=== PATIENT | female | born 1990 | race Caucasian/White ===

== ENCOUNTER 2024-09-24 12:44 | Emergency (ER) | payer MEDICARE, SELFPAY ==
[2024-09-24 12:46] VITALS: BP 132/95; PULSE 79; RESP 18; TEMP 36.6; O2SAT 98
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
[2024-09-24 13:40] LABS: Absolute Lymphocyte Count 2.88 X10^3/uL (0.83-4.51); Absolute Neutrophil Count 5.8 X10^3/uL (2.0-7.7); Basophil# 0.05 X10^3/uL; Basophil% 0.5 % (0-1); Eosinophil# 0.04 X10^3/uL; Eosinophils% 0.4 % (0-5); Hematocrit 39.5 % (37-47); Hemoglobin 13.5 g/dL (12.0-15.0); Lymphocyte # 2.88 X10^3/ul (0.83-4.51); Lymphocyte % 31.2 % (19-41); Mean Corp Hgb Conc 34.2 g/dL (32-36); Mean Corpuscular Hgb 29.3 pg (27.0-32.0); Mean Corpuscular Volume 85.9 fL (81-99); Mean Platelet Vol. 9.6 fl (6.2-12.0); Monocyte# 0.49 X10^3/uL; Monocyte% 5.3 % (0-10); NRBC Flagged by Analyzer 0 % (0-5); Neutrophil # 5.76 X10^3/uL (2.7-7.7); Neutrophil % 62.4 % (47-70); Platelet Count 281 K/mm3 (150-450); RBC Distribution Width CV 13.7 % (11.6-14.6); RBC Distribution Width SD 42.4 fl (35.1-43.9); White Blood Count 9.2 K/mm3 (4.4-11.0)
[2024-09-24 13:51] LABS: Anion Gap 8 (5-15); BUN 10 mg/dL (7-18); BUN/Creat Ratio 14.6 RATIO (10-20); Calcium,Total 8.8 mg/dL (8.5-10.1); Chloride 106 mmol/L (98-107); Creatinine, Serum 0.69 mg/dL (0.55-1.02); EST Glomerular Filtration Rate 105 mL/min (>60); Est Glom Filt Rate - Afr Amer 127 mL/min (>60); Glucose 71 mg/dL (74-106); Potassium 3.5 mmol/L (3.5-5.1); Sodium Level 136 mmol/L (136-145)
[2024-09-24] MEDS: Ziprasidone IM 20 MG/ML VIAL IM (13:53)
[2024-09-24 13:59] LABS: Amphetamine Urine POSITIVE (<1000 ng/mL); Barbiturate Urine VISTA NEGATIVE (< 200 ng/mL); Benzodiazepine Urine VISTA POSITIVE (< 200 ng/mL); Cocaine Urine VISTA NEGATIVE (< 300 ng/mL); Ecstacy Urine VISTA NEGATIVE (< 500 ng/mL); Methadone Urine VISTA NEGATIVE (< 300 ng/mL); Opiates Urine NEGATIVE (< 300 ng/mL); PCP Urine NEGATIVE (< 25 ng/mL); THC Urine VISTA NEGATIVE (< 50 ng/mL); Vista UDS pH Range 5
[2024-09-24 14:05] VITALS: BP 125/71; PULSE 89; RESP 16; O2SAT 99
--- NOTE | 2024-09-24 14:25 | ED.RN ---
SIGNIFICANT OTHER, STACEY, CALLED TO ED. PT GAVE THIS RN PERMISSION TO TALK WITH STACEY. STACEY UPDATED, INFORMED THAT PATIENT WILL BE EVALUATED FOR MENTAL HEALTH PLACEMENT. INFORMED THAT PATIENT IS NOT APPROPRIATE FOR VISITORS AT THIS TIME D/T AGITATION.
[2024-09-24 14:29] LABS: Internal QC Validated? YES +Cl - CLEAR BKGD; Pregnancy, Serum, hCG Quali. NEGATIVE Negative
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
--- NOTE | 2024-09-24 18:12 | CM.ED ---
Social Work: [place] Grzegor[place]: [place]: Patient accepted. Accepting physician: Dr. Baires. NTN: [phone], opt. 0 then ask to be transferred to [facility] MARCY Felix, RADIO SPORTSCASTER
--- NOTE | 2024-09-24 18:30 | CM.ED ---
Social Work: rehabilitation worker notified patient of [facility] admission. Patient stated she [facility] to [facility] but otherwise, was agreeable. rehabilitation worker attempted to make phone contact with patient's twice with no success to provide update on transfer. [facility]'s voicemail has not yet been set up so social insurance administrator was not able to leave a message. Krissy Alves, SENIOR AIR DIRECTOR, WATER HAULER
--- NOTE | 2024-09-24 18:54 | ED.RN ---
This RN called report to Katherin at [facility].
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
[2024-09-24 19:13] VITALS: BP 132/97; PULSE 85; RESP 18; TEMP 36.7; O2SAT 97
--- NOTE | 2024-09-25 11:31 | CM.ED ---
Social Work Received call from Ann with [facility] needing spelling verification on referral sent on 09/24/2024. SW called Ann back at [phone] and provided requested information. Judith Castillo, HUMANITIES COORDINATOR, AUTOMATIC CHIEF
--- NOTE | 2024-10-21 15:54 | CM.ED ---
Social Work: Social received correspondence from [facility] acknowledging that there is not a need for on-going child protective services. Krissy Alves, TOMATO PULPER OPERATOR, SECURITY ALARM TECHNICIAN
== END 2024-09-24 19:48 ==
PROVIDERS: Physician Assistant; Emergency Provider Emergency Medicine; Visit Provider Emergency Medicine
DX: F31.9 Bipolar disorder, unspecified (principal); F29 Unspecified psychosis not due to a substance or known physiological condition; F19.19 Other psychoactive substance abuse with unspecified psychoactive substance-induced disorder; F17.290 Nicotine dependence, other tobacco product, uncomplicated
CPT/HCPCS: 80048; 80307; 82077; 84703; 85025; 96372; 99285; J3486